=== PATIENT | female | born 1945 | race African-American/Black ===

== ENCOUNTER 2016-12-10 15:50 | Emergency (ER) | payer MEDICARE, MEDICAID ==
[~2016-12-10] VITALS: Ht 157.5 cm; Wt 70.0 kg
[~2016-12-10 15:50] MED LIST: BENA20TA3 PO; CLON0.1T PO; FS300 PO; LOSA100T11 PO; NIFE30TA; NIFE60TA35 PO; OMEP20CA10 PO; POTASSIUM CL; SIMV10TA2 PO; SIMV10TA6
[2016-12-10] MEDS ORDERED: SODIUM CHLORIDE 0.9% 500 ML IV ONE (17:25)
[2016-12-10 17:51] LABS: BASOPHILS % 1.2 % (0.0-2.0); EOSINOPHILS % 0.3 % (0.0-5.0); HEMATOCRIT. 35.8 % (36.0-48.0); HEMOGLOBIN. 11.9 g/dL (12.0-16.0); LYMPHOCYTES % 18.7 % (20.0-50.0); MEAN CORPUSCULAR HEMOGLOBIN 29.3 pg (28.0-32.0); MEAN CORPUSCULAR HGB CONC 33.3 g/dL (31.0-37.0); MEAN CORPUSCULAR VOLUME 88.1 fL (81.0-99.0); MEAN PLATELET VOLUME 8.4 fl (7.4-10.4); MONOCYTES % 6.5 % (2.0-8.0); NEUTROPHILS % 73.3 % (40.0-76.0); PLATELET 332 x1000/uL (130-400); RED BLOOD CELL COUNT 4.06 mill/uL (4.2-5.4); RED CELL DISTRIBUTION WIDTH 14.7 % (11.6-14.6); WHITE BLOOD COUNT 10.9 x1000/uL (4.5-11.0)
[2016-12-10 17:53] LABS: INR 1.1; PARTIAL THROMBOPLASTIN TIME 26.3 sec (24.0-34.0); PROTHROMBIN TIME 11.3 sec
[2016-12-10 17:56] LABS: ALBUMIN 3.5 g/dL (3.4-5.0); ANION GAP 14; CALCIUM 8.9 mg/dL (8.5-10.1); CARBON DIOXIDE 26 mEq/L (21-32); CHLORIDE 104 mEq/L (98-107); INDEX HEMOLYSI 1 (1-3); INDEX ICTERIC 1 (1-4); INDEX LIPEMIC 1 (1-3); MAGNESIUM 2.1 mg/dL (1.8-2.4); UREA NITROGEN BLOOD 18 mg/dL (7-21)
[2016-12-10 18:01] LABS: ALANINE AMINOTRANSFERASE 14 IU/L (13-61); eGFR > 60 mL/min (>60)
[2016-12-10 18:03] LABS: CREATINE KINASE MB FRACTION 3.3 ng/mL (0.5-3.6); NT PRO B-TYPE NATRIURETIC PEP 223 pg/mL (5-125); TROPONIN I < 0.02 ng/mL (0.00-0.04)
[2016-12-10] MEDS ORDERED: MECLIZINE 25MG TABLET PO ONE (18:30)
[2016-12-10 19:11] LABS: CLARITY URINE CLEAR (CLEAR); COLOR URINE YELLOW (YELLOW); GLUCOSE URINE NEGATIVE (NEGATIVE); KETONES URINE NEGATIVE (NEGATIVE); LEUKOCYTE ESTERASE URINE NEGATIVE (NEGATIVE); NITRITE URINE NEGATIVE (NEGATIVE); OCCULT BLOOD URINE NEGATIVE (NEGATIVE); PH URINE 7.5 (4.5-8.0); PROTEIN URINE NEGATIVE (NEGATIVE); SPECIFIC GRAVITY URINE 1.007 (1.005-1.030); UROBILINOGEN URINE 0.2 E.U./dL (0.2-1.0)
[2016-12-10 20:00] VITALS: BP 149/79
== END 2016-12-10 20:19 | disposition home or self-care (01) ==
LOC: ER 17:51
DX: R42 Dizziness and giddiness (principal); R51 Headache; I10 Essential (primary) hypertension; E78.5 Hyperlipidemia, unspecified; E78.00 Pure hypercholesterolemia, unspecified; M19.90 Unspecified osteoarthritis, unspecified site; Z88.0 Allergy status to penicillin
CPT/HCPCS: 36415; 70450; 71010; 80053; 81003; 82553; 83735; 83880; 84484; 85025; 85610; 85730; 93005; 96360; 96361; 99285; J7030; J7040; J8597

== ENCOUNTER 2025-06-14 14:09 | Emergency (ER) | payer BC, MEDICAID ==
[~2025-06-14] VITALS: Ht 157.5 cm; Wt 67.0 kg
[~2025-06-14 14:09] MED LIST changes: +BENA-8 PO; -BENA20TA3 PO; +FERR325T23 PO; -FS300 PO; +LOSA-415 PO; -LOSA100T11 PO; -NIFE30TA; +NIFE30TA23; -OMEP20CA10 PO; +OMEP20CA14 PO; +SIMV-341 PO; -SIMV10TA2 PO; -SIMV10TA6; +SIMV10TA97
[2025-06-14 14:23] VITALS: O2SAT 97
[2025-06-14] MEDS ORDERED: LABETALOL 5MG/ML 4ML INJ IV ONE (14:45)
[2025-06-14 15:22] LABS: BASOPHILS % 1.0 % (0.0-2.0); EOSINOPHILS % 0.8 % (0.0-5.0); HEMATOCRIT. 39.5 % (36.0-48.0); HEMOGLOBIN. 13.1 g/dL (12.0-16.0); LYMPHOCYTES % 19.6 % (20.0-50.0); MEAN PLATELET VOLUME 8.7 fl (7.4-10.4); MONOCYTES % 7.1 % (2.0-8.0); NEUTROPHILS % 71.5 % (40.0-76.0); PLATELET 341 x1000/uL (130-400); RED BLOOD CELL COUNT 4.40 mill/uL (4.2-5.4); RED CELL DISTRIBUTION WIDTH 15.0 % (11.6-14.6)
[2025-06-14 15:38] LABS: CREATININE 1.0 mg/dL (0.6-1.0)
[2025-06-14 15:39] LABS: UREA NITROGEN BLOOD 16 mg/dL (9-23)
[2025-06-14 15:40] LABS: ASPARTATE AMINOTRANSFERASE 24 IU/L (<34); TROPONIN I HIGH SENSITIVITY 12 ng/L (3.0-34)
[2025-06-14 15:41] LABS: BILIRUBIN DIRECT < 0.1 mg/dL (<=3.0); BILIRUBIN TOTAL 0.4 mg/dL (0.1-1.0); PROTEIN TOTAL 8.3 g/dL (6.0-8.3)
[2025-06-14] MEDS: LABETALOL 5MG/ML 4ML INJ IV SCH (16:44)
[2025-06-14] MEDS: LABETALOL 5MG/ML 4ML INJ IV ONE (17:54)
[2025-06-14 18:28] VITALS: BP 184/89; PULSE 68; RESP 16; TEMP 36.9; O2SAT 97
== END 2025-06-14 18:30 | disposition home or self-care (01) ==
LOC: ER 14:09 → CMPBEDREQ 06-15 08:52
DX: I16.0 Hypertensive urgency (principal); E78.00 Pure hypercholesterolemia, unspecified; I10 Essential (primary) hypertension; M19.90 Unspecified osteoarthritis, unspecified site; Z79.899 Other long term (current) drug therapy; Z88.0 Allergy status to penicillin
CPT/HCPCS: 99285; 96374; 70450; 71045; 80076; 80048; 83880; 83735; 85025; 84484; 36415; 93005; 96376; J3490